=== PATIENT | female | born 1945 | race Caucasian/White ===

== ENCOUNTER 2021-05-22 05:31 | Day surgery (SDC) | payer MEDICARE, OTHER ==
[2021-05-18 14:31] LABS: BASOPHILS # (AUTO) 0.1 X10'3 (0-0.2); EOSINOPHILS # (AUTO) 0.2 X10'3 (0-0.9); EOSINOPHILS % (AUTO) 2.7 % (0-6); LYMPHOCYTES % (AUTO) 24.5 % (21-51); MEAN CORPUSCULAR HEMOGLOBIN 33.1 PG (27.0-31.0); MEAN CORPUSCULAR HGB CONC 33.8 g/dL (33.0-36.5); MEAN CORPUSCULAR VOLUME 97.7 FL (78-98); MEAN PLATELET VOLUME 6.7 FL (7.4-10.4); MONOCYTES # (AUTO) 0.8 X10'3 (0-0.9); MONOCYTES % (AUTO) 10.1 % (2-12); NEUTROPHILS % (AUTO) 61.7 % (42-75); PRE OP HEMATOCRIT 33.7 % (35.0-45.0); PRE OP HEMOGLOBIN 11.4 g/dL (12.0-16.0); PRE OP PLATELET COUNT 314 X10'3 (140-440); RED BLOOD COUNT 3.45 X10'6 (4.20-5.60); RED CELL DISTRIBUTION WIDTH 12.8 % (11.5-14.5)
[2021-05-18 14:49] LABS: ALBUMIN 3.6 G/DL (3.4-5.0); ALBUMIN/GLOBULIN RATIO 0.9 (1.1-1.5); ALKALINE PHOSPHATASE 64 IU/L (46-116); BLOOD UREA NITROGEN 19 MG/DL (7-18); BUN/CREATININE RATIO 24.7 (6.6-38.0); CALCIUM 8.2 MG/DL (8.5-10.1); CHLORIDE 102 MMOL/L (99-107); CREATININE 0.77 MG/DL (0.40-0.90); PRE OP ALT 35 U/L (30-65); PRE OP ANION GAP 8 (8-16); PRE OP AST 22 U/L (10-37); PRE OP BILIRUB, TOTAL 0.6 MG/DL (0.0-1.0); PRE OP GLUCOSE 111 MG/DL (70-104); PRE OP POTASSIUM 4.3 MMOL/L (3.4-5.1); PRE OP SODIUM 139 MMOL/L (135-145); TOTAL CARBON DIOXIDE 29.3 MMOL/L (24-32); TOTAL PROTEIN 7.5 G/DL (6.4-8.2); eGFR 73 ML/MIN
[~2021-05-22] VITALS: Ht 157.5 cm; Wt 62.1 kg
[~2021-05-22 05:31] MED LIST: ATEN50TA PO; DOCUMENT DATE & TIME OF BETA-BLOCKER PO ONE; FLUT1AER IH; LISI10TA27 PO; OMEP20TA5 PO; SIMV-45 PO; cefazolin/dext.iso 2gm/100ml IV ONE; famotidine 20mg tablet PO ONE; ringers solution, lacted 1,000 ML IV SCH
[2021-05-22] MEDS ORDERED: LIDOcaine 1% (10mg/ml) 2ml vial ONE (05:54)
[2021-05-22 06:31] VITALS: BP 178/76
[2021-05-22 06:43] VITALS: BP 178/76
[2021-05-22] MEDS ORDERED: BUPIVAcaine/PF 2.5mg/ml (0.25%) 10ml vial ONE ×2 (06:57→13:07)
[2021-05-22] MEDS ORDERED: fentaNYL/PF 50MCG/1 ML 2ML syringe ONE (07:17)
[2021-05-22] MEDS ORDERED: midazolam 1 mg/ML 2ml injection ONE (07:17)
[2021-05-22 07:55] VITALS: BP 146/66
[2021-05-22] MEDS ORDERED: proCHLORperazine 10 MG/2 ml inj IV PRN (07:55)
[2021-05-22] MEDS ORDERED: morphine 4 MG/ML inj SYRINge IV PRN (07:55)
[2021-05-22] MEDS ORDERED: ringers solution, lacted 1,000 ML IV SCH (07:55)
[2021-05-22] MEDS ORDERED: meperidine/PF 25mg/ml syringe IV PRN ×3 (07:55)
[2021-05-22] MEDS ORDERED: ondansetron/PF 4mg/2ml inj IV PRN (07:55)
[2021-05-22] MEDS ORDERED: morphine 2 MG/ML inj. syringe IV PRN (07:55)
--- NOTE | 2021-05-22 07:55 | NUR ---
ADMITTED TO PACU FROM OR ACCOMPANIED BY ANESTHESIA. INTIAL PHYSICAL ASSESSMENT DONE AND RECORDED. REPORT RECEIVED FROM ANESTHESIA.
[2021-05-22 08:05] VITALS: BP 144/72
[2021-05-22 08:15] VITALS: BP 145/64
[2021-05-22 08:25] VITALS: BP 147/65
--- NOTE | 2021-05-22 08:30 | NUR ---
DISCHARGE CRITERIA MET, DISCHARGE INSTRUCTIONS GIVEN, DEMONSTRATES VERBAL UNDERSTANDING. DISCHARGED HOME IN GOOD CONDITION.
== END 2021-05-22 08:30 | disposition home or self-care (01) ==
LOC: PAS 05:31
PROVIDERS: ATTEND Orthopaedic Surgery Hand Surgery
DX: G56.01 Carpal tunnel syndrome, right upper limb (principal); K21.9 Gastro-esophageal reflux disease without esophagitis; I10 Essential (primary) hypertension; I25.10 Atherosclerotic heart disease of native coronary artery without angina pectoris; J45.909 Unspecified asthma, uncomplicated; E78.00 Pure hypercholesterolemia, unspecified; Z20.822 Contact with and (suspected) exposure to COVID-19; Z87.891 Personal history of nicotine dependence; Z98.890 Other specified postprocedural states; Z79.899 Other long term (current) drug therapy; Z79.82 Long term (current) use of aspirin; Z72.89 Other problems related to lifestyle
CPT/HCPCS: 36415; 64721; 80053; 85025; 93005; J2001; J2250; J3010; J3490; U0003; U0005; Z7506; Z7512; A4215; A4618; A6449; J7120

== ENCOUNTER 2021-06-19 05:42 | Day surgery (SDC) | payer MEDICARE, OTHER ==
[2021-06-12 13:39] LABS: BASOPHILS # (AUTO) 0.1 X10'3 (0-0.2); BASOPHILS % (AUTO) 0.8 % (0-1); EOSINOPHILS # (AUTO) 0.2 X10'3 (0-0.9); LYMPHOCYTES # (AUTO) 2.5 X10'3 (1.1-4.8); LYMPHOCYTES % (AUTO) 24.4 % (21-51); MEAN CORPUSCULAR HEMOGLOBIN 33.3 PG (27.0-31.0); MEAN PLATELET VOLUME 6.6 FL (7.4-10.4); MONOCYTES # (AUTO) 1.1 X10'3 (0-0.9); MONOCYTES % (AUTO) 10.5 % (2-12); NEUTROPHILS # (AUTO) 6.3 X10'3 (1.8-7.7); NEUTROPHILS % (AUTO) 62.3 % (42-75); PRE OP HEMATOCRIT 34.6 % (35.0-45.0); PRE OP HEMOGLOBIN 11.8 g/dL (12.0-16.0); PRE OP PLATELET COUNT 298 X10'3 (140-440); RED BLOOD COUNT 3.53 X10'6 (4.20-5.60); RED CELL DISTRIBUTION WIDTH 13.6 % (11.5-14.5)
[2021-06-12 13:48] LABS: ALBUMIN/GLOBULIN RATIO 1.1 (1.1-1.5); ALKALINE PHOSPHATASE 71 IU/L (46-116); BLOOD UREA NITROGEN 24 MG/DL (7-18); BUN/CREATININE RATIO 28.9 (6.6-38.0); CALCIUM 8.8 MG/DL (8.5-10.1); CHLORIDE 99 MMOL/L (99-107); CREATININE 0.83 MG/DL (0.40-0.90); PRE OP ALT 24 U/L (30-65); PRE OP ANION GAP 12 (8-16); PRE OP AST 18 U/L (10-37); PRE OP GLUCOSE 92 MG/DL (70-104); PRE OP POTASSIUM 4.5 MMOL/L (3.4-5.1); PRE OP SODIUM 136 MMOL/L (135-145); TOTAL CARBON DIOXIDE 25.5 MMOL/L (24-32); TOTAL PROTEIN 7.8 G/DL (6.4-8.2); eGFR 67 ML/MIN
[~2021-06-19] VITALS: Ht 157.5 cm; Wt 63.5 kg
[~2021-06-19 05:42] MED LIST changes: +ASPI-529 PO; +INUL2TAB5 PO; +MULT-1085 PO; +SALM1CAP4 PO; +VITA-268 PO; +VITA400T10 PO
[2021-06-19 05:55] VITALS: BP 171/79
[2021-06-19] MEDS ORDERED: LIDOcaine 1% (10mg/ml) 2ml vial ONE (06:05)
[2021-06-19] MEDS ORDERED: BUPIVAcaine/PF 2.5mg/ml (0.25%) 10ml vial ONE (06:38)
[2021-06-19] MEDS ORDERED: midazolam 1 mg/ML 2ml injection ONE (07:26)
[2021-06-19] MEDS ORDERED: fentaNYL/PF 50MCG/1 ML 2ML syringe ONE (07:26)
[2021-06-19] MEDS ORDERED: LIDOcaine 0.5% (5mg/ml) 50ml vial ONE (07:28)
[2021-06-19] MEDS ORDERED: proCHLORperazine 10 MG/2 ml inj IV PRN (07:50)
[2021-06-19] MEDS ORDERED: morphine 2 MG/ML inj. syringe IV PRN (07:50)
[2021-06-19] MEDS ORDERED: ondansetron/PF 4mg/2ml inj IV PRN (07:50)
[2021-06-19] MEDS ORDERED: ringers solution, lacted 1,000 ML IV SCH (07:50)
[2021-06-19] MEDS ORDERED: morphine 4 MG/ML inj SYRINge IV PRN (07:50)
[2021-06-19] MEDS ORDERED: meperidine/PF 25mg/ml syringe IV PRN ×3 (07:50)
--- NOTE | 2021-06-19 08:02 | NUR ---
ASSUME CARE PT AWAKE VSS NO DISTRESS. DENIES PAIN, GARSIA +CMS TO LEFT HAND CONT TO MONITOR Addendum: 06/19/21 at 0818 by Christina Diaz RN Amended: Links added.
[2021-06-19 08:12] VITALS: BP 143/66
[2021-06-19 08:22] VITALS: BP 154/68
--- NOTE | 2021-06-19 08:22 | NUR ---
PT MORE AWAKE VSS NO DISTRESS. REFUSE PO FLUIDS, MEETS CRITERIA TO GO HOME, DC INSTR GIVEN NO ?'S OR CONCERNS CALLED. Addendum: 06/19/21 at 0824 by Christina Diaz RN Amended: Links added.
== END 2021-06-19 08:32 | disposition home or self-care (01) ==
LOC: PAS 05:42
PROVIDERS: ATTEND Orthopaedic Surgery Hand Surgery
DX: G56.01 Carpal tunnel syndrome, right upper limb (principal); E78.00 Pure hypercholesterolemia, unspecified; I10 Essential (primary) hypertension; J45.909 Unspecified asthma, uncomplicated; K21.9 Gastro-esophageal reflux disease without esophagitis; Z20.822 Contact with and (suspected) exposure to COVID-19; M18.0 Bilateral primary osteoarthritis of first carpometacarpal joints; Z79.899 Other long term (current) drug therapy; Z79.82 Long term (current) use of aspirin; Z98.890 Other specified postprocedural states; Z87.891 Personal history of nicotine dependence; Z72.89 Other problems related to lifestyle
CPT/HCPCS: 36415; 64721; 80053; 82948; 85025; J2001; J2250; J3010; J3490; U0003; U0005; Z7506; Z7512; A4215; J7120